=== PATIENT | male | born 1950 | race Two or more races ===

== ENCOUNTER 2024-01-21 12:23 | Emergency (ER) | payer OTHER ==
[~2024-01-21] VITALS: Ht 185.4 cm; Wt 81.2 kg
[2024-01-21] MEDS: cetrizine 10 MG TABLET PO ONE (13:15)
[2024-01-21] MEDS ORDERED: cetrizine 10 MG TABLET ONE (13:18)
[2024-01-21 14:04] VITALS: BP 122/90; TEMP 98.6; O2SAT 98
== END 2024-01-21 14:00 | disposition home or self-care (01) ==
LOC: ER 12:32 → EDSEX 12:32 → ER 14:00
DX: M79.89 Other specified soft tissue disorders (principal); Z86.79 Personal history of other diseases of the circulatory system; W60.XXXA Contact with nonvenomous plant thorns and spines and sharp leaves, initial encounter; Y93.89 Activity, other specified; Y92.098 Other place in other non-institutional residence as the place of occurrence of the external cause; Y99.8 Other external cause status
CPT/HCPCS: 73140-TC